=== PATIENT | male | born 1960 | race Caucasian/White ===

== ENCOUNTER 2019-04-14 14:37 | Emergency (ER) | payer OTHER ==
[~2019-04-14] VITALS: Ht 172.7 cm; Wt 95.3 kg
[~2019-04-14 14:37] MED LIST: CONCERTA; GENTAMICIN SU3 MG/ML OPHTHALMIC; KEFLEX500 MG PO; PROZAC40 MG PO; SLEEP MEDS; TRAZODONE
[2019-04-14] MEDS ORDERED: PROZAC20 MG PO (14:47)
[2019-04-14] MEDS ORDERED: TRAZODONE HCL50 MG PO (14:47)
[2019-04-14] MEDS ORDERED: VYVANSE30 MG PO (14:47)
[2019-04-14] MEDS ORDERED: NORCO 5-325 TA1 EACH PO (15:58)
[2019-04-14 16:07] VITALS: BP 137/80
== END 2019-04-14 16:08 | disposition home or self-care (01) ==
LOC: M.ERS 14:37
DX: S82.442A Displaced spiral fracture of shaft of left fibula, initial encounter for closed fracture (principal); F41.9 Anxiety disorder, unspecified; W01.0XXA Fall on same level from slipping, tripping and stumbling without subsequent striking against object, initial encounter; Y93.89 Activity, other specified; Y92.89 Other specified places as the place of occurrence of the external cause; Y99.8 Other external cause status

== ENCOUNTER → 2019-04-25 | Outpatient (CLI) | payer OTHER ==
[~2019-04-25] MED LIST changes: +NORCO 5-325 TA1 EACH PO; +PROZAC20 MG PO; +TRAZODONE HCL50 MG PO; +VYVANSE30 MG PO
== END ==
LOC: M.MRI 17:09
DX: S93.422A Sprain of deltoid ligament of left ankle, initial encounter (principal); X58.XXXA Exposure to other specified factors, initial encounter; Y93.89 Activity, other specified; Y92.89 Other specified places as the place of occurrence of the external cause; Y99.8 Other external cause status

== ENCOUNTER 2021-10-10 10:38 | Emergency (ER) | payer OTHER ==
[~2021-10-10] VITALS: Ht 172.7 cm; Wt 90.7 kg
[2021-10-10] MEDS ORDERED: ARICEPT10 M1 PO (10:50)
[2021-10-10 11:18] LABS: ABSOLUTE MONOCYTES 0.9 thou/uL (0.0-1.2); ABSOLUTE NEUTROPHILS 8.8 thou/uL (1.6-8.1); NUCLEATED RBCS 0 /100WBC; RDW-CV 13.4 % (10.5-14.5)
[2021-10-10 11:20] LABS: ABSOLUTE BASOPHILS 0.1 thou/uL (0.0-0.2); ABSOLUTE EOSINOPHILS 0.2 thou/uL (0.0-0.7); ABSOLUTE LYMPHOCYTES 0.8 thou/uL (0.8-5.3); BASOPHILS 0.6 %; HEMOGLOBIN 14.8 gm/dL (14.0-18.0); LYMPHOCYTES 7.7 %; MCH 30.4 pg (26.0-34.0); MCHC 33.7 g/dL (28.0-37.0); MCV 90.4 fL (80.0-100.0); PLATELET COUNT* 217 thou/uL (150-400); POLYS 81.7 %; RBC 4.86 mil/uL (4.50-6.00); WBC 10.8 thou/uL (4.0-11.0)
[2021-10-10 11:32] LABS: CALCIUM 8.6 mg/dL (8.5-10.1); POTASSIUM 4.3 mmol/L (3.5-5.1)
[2021-10-10 11:37] LABS: ALBUMIN 3.4 g/dL (3.4-5.0); TOTAL BILIRUBIN 0.4 mg/dL (<0.1-1.0); TOTAL PROTEIN 7.2 g/dL (6.4-8.2)
[2021-10-10] MEDS ORDERED: DOXYCYCLINE 10100 M2 PO (11:46)
[2021-10-10] MEDS ORDERED: AMOXIL 875 MG875 M2 PO (11:46)
[2021-10-10 11:53] VITALS: BP 135/71
== END 2021-10-10 11:53 | disposition home or self-care (01) ==
LOC: M.ERS 10:38
PROVIDERS: Physician Assistant
DX: L03.114 Cellulitis of left upper limb (principal); F90.9 Attention-deficit hyperactivity disorder, unspecified type; F41.9 Anxiety disorder, unspecified; Z79.899 Other long term (current) drug therapy